=== PATIENT | male | born 1995 | race African-American/Black ===

== ENCOUNTER 2017-10-19 09:40 | Inpatient (IN) | payer OTHER ==
[~2017-10-19] VITALS: Ht 188 cm; Wt 81.9 kg
[2017-10-19 10:28] LABS: BASOPHIL (%) 0.4 % (0-1); BASOPHIL COUNT 0.1 K/uL (0-0.1); EOSINOPHIL (%) 0.2 % (0-5); HEMOGLOBIN 16.2 G/DL (12.5-16.6); IMMATURE GRANULOCYTE (%) 0.6 % (0.0-0.7); LYMPHOCYTE (%) 8.4 % (15-42); LYMPHOCYTE COUNT 1.2 K/uL (1.0-2.8); MCH 30.2 PG (29.0-34.0); MCHC 35.2 G/DL (30.0-36.0); MCV 85.7 FL (86-99); MONOCYTE (%) 7.6 % (3-12); NEUTROPHIL (%) 82.8 % (45-76); NEUTROPHIL COUNT 11.4 K/uL (1.8-6.4); PLATELET COUNT 301 K/uL (156-360); RBC DIS.WIDTH-CV 12.1 % (11.8-14.6); RBC DIS.WIDTH-SD 37.7 % (39-53); RED BLOOD COUNT 5.37 M/uL (4.00-5.50); WHITE BLOOD COUNT 13.8 K/uL (4.1-10.2)
[2017-10-19 10:36] LABS: CHLORIDE 106 mEq/L (99-109); POTASSIUM 3.9 mEq/L (3.7-5.4); SODIUM 139 mEq/L (136-147)
[2017-10-19 10:38] LABS: GLUCOSE 131 mg/dL (70-99)
[2017-10-19 10:41] LABS: SERUM ETHYL ALCOHOL < 10 mg/dL
[2017-10-19 10:42] LABS: CREATININE 1.6 mg/dL (0.6-1.3); GFR ESTIMATE (CALCULATED) > 59 mL/min/ (58.99-99999); UREA NITROGEN (BUN) 16 mg/dL (9-23)
[2017-10-19 11:05] LABS: APPEARANCE CLEAR ((CLEAR)); BILIRUBIN NEGATIVE; BLOOD MODERATE; COLOR YELLOW ((YELLOW)); GLUCOSE (STRIP) NEGATIVE; KETONES NEGATIVE; LEUKOCYTES NEGATIVE; NITRITE NEGATIVE; PROTEIN (STRIP) 100; UROBILINOGEN 0.2 MG/DL (0.2-1.0)
[2017-10-19 11:09] LABS: BACTERIA RARE /HPF; EPITHELIAL CELLS RARE /HPF; MUCUS TRACE /LPF; RED BLOOD CELLS 20-30 /HPF (0-5)
[2017-10-19 11:14] LABS: AMPHETAMINE NEGATIVE (500 ng/mL); BARBITURATES NEGATIVE (200 ng/mL); BENZODIAZEPINES NEGATIVE (150 ng/mL); BUPRENORPHINE NEGATIVE (10 ng/mL); COCAINE NEGATIVE (150 ng/mL); METHADONE NEGATIVE (200 ng/mL); METHAMPHETAMINE NEGATIVE (500 ng/mL); OPIATES (MORPHINE) NEGATIVE (100 ng/mL); OXYCODONE NEGATIVE (100 ng/mL); PHENCYCLIDINE NEGATIVE (25 ng/mL); PROPOXYPHENE NEGATIVE (300 ng/mL); THC CANNABINOIDS NEGATIVE (50 ng/mL); TRICYCLIC ANTIDEPRESSANTS NEGATIVE (300 ng/mL)
[2017-10-19] MEDS ORDERED: CLARITIN,ALAVAR10 MG PO (13:51)
[2017-10-19 14:03] VITALS: BP 121/73
[2017-10-19 14:08] VITALS: BP 121/73
[2017-10-19 15:35] VITALS: BP 121/73
[2017-10-20 07:37] VITALS: BP 117/72
[2017-10-20 15:26] VITALS: BP 153/85
[2017-10-21 07:31] VITALS: BP 127/71
[2017-10-21 11:54] LABS: ALBUMIN 4.2 G/DL (3.2-4.8); ALKALINE PHOSPHATASE 61 IU/L (3-129); ALT (GPT) 30 IU/L (3-49); AST (GOT) 45 IU/L (2-34); DIRECT BILIRUBIN 0.2 mg/dL (0.0-0.3); TOTAL BILIRUBIN 0.9 MG/DL (0.0-1.0); TOTAL PROTEIN 7.1 G/DL (6.4-8.3)
[2017-10-21 15:31] VITALS: BP 137/84
[2017-10-22 07:38] VITALS: BP 119/59
[2017-10-22 15:35] VITALS: BP 121/81
[2017-10-23 07:53] VITALS: BP 160/72
[2017-10-23 15:29] VITALS: BP 118/70
[2017-10-24 07:49] VITALS: BP 128/71
[2017-10-24 15:33] VITALS: BP 134/76
[2017-10-25 06:53] VITALS: BP 131/59
[2017-10-25 15:48] VITALS: BP 119/68
[2017-10-26 08:06] VITALS: BP 139/71
[2017-10-26 15:23] VITALS: BP 111/68
[2017-10-27 07:45] VITALS: BP 138/83
[2017-10-27 09:39] VITALS: BP 161/93
[2017-10-27 15:38] VITALS: BP 120/72
[2017-10-28 07:53] VITALS: BP 126/78
[2017-10-28 15:48] VITALS: BP 127/68
[2017-10-29 07:35] VITALS: BP 112/69
[2017-10-29 15:39] VITALS: BP 117/56
[2017-10-30] MEDS ORDERED: SEROQUEL300 MG PO ×2 (09:42→10:49)
[2017-10-30] MEDS ORDERED: QUETIAPINE FUM300 M1 PO (09:42)
[2017-10-30] MEDS ORDERED: HYDROXYZINE PAM50 MG PO (09:42)
[2017-10-30 09:56] VITALS: BP 146/77
== END 2017-10-30 12:56 | disposition home or self-care (01) | DRG 885 ==
LOC: EME 09:40 → 1WEST 12:28 → EDOF 12:28 → ENRESERV 13:25 → 1WEST 13:53
PROVIDERS: Emergency Medicine; Psychiatry & Neurology Psychiatry
DX: F20.81 Schizophreniform disorder (principal); R45.851 Suicidal ideations; E86.0 Dehydration; N39.0 Urinary tract infection, site not specified; F41.9 Anxiety disorder, unspecified; F22 Delusional disorders; R45.1 Restlessness and agitation; R45.4 Irritability and anger; R00.0 Tachycardia, unspecified; J45.909 Unspecified asthma, uncomplicated; Z81.8 Family history of other mental and behavioral disorders
CPT/HCPCS: 80048; 80076; 81003; 85025; 87086; 90837; 93005; 93306; 97150 GO; 97165 GO; 99281; 99285; G0480; J1630; J2250; J7030; Q0177